=== PATIENT | male | born 1965 | race American Indian/Alaskan Native ===

== ENCOUNTER 2017-07-13 22:11 | Emergency (ER) | payer BC, OTHER ==
[2017-07-13] MEDS ORDERED: Ketorolac 30 MG/ML SDV IVPUSH ONE (22:23)
[2017-07-13] MEDS ORDERED: Ondansetron 4 MG/2 ML SDV IVPUSH ONE (22:23)
[2017-07-13] MEDS ORDERED: Sodium Chloride 0.9% 1,000 ML IV ONE (22:23)
--- NOTE | 2017-07-13 22:26 | EDM.PDOC ---
ED HPI GENERAL MEDICAL PROBLEM - General Chief Complaint: Abdominal Pain Stated Complaint: ABD PAIN Time Seen by Provider: 07/13/17 22:22 - History of Present Illness INITIAL COMMENTS - FREE TEXT/NARRATIVE: HISTORY AND PHYSICAL: History of present illness: Patient 52-year-old white male presents with a concern of right-sided abdominal/ flank pain that started this afternoon progressively worse he was similar episode in the past with urolithiasis he denies fever chills denies vomiting denies trauma denies urinary symptoms denies chest pain or shortness of breath Review of systems: As per history of present illness and below otherwise all systems reviewed and negative. Past medical history: As per history of present illness and as reviewed below otherwise noncontributory. Surgical history: As per history of present illness and as reviewed below otherwise noncontributory. Social history: No reported history of drug or alcohol abuse. Family history: As per history of present illness and as reviewed below otherwise noncontributory. Physical exam: HEENT: Atraumatic, normocephalic, pupils reactive, negative for conjunctival pallor or scleral icterus, mucous membranes moist, throat clear, neck supple, nontender, trachea midline. Lungs: Clear to auscultation, breath sounds equal bilaterally, chest nontender. Heart: S1S2, regular, negative for clicks, rubs, or JVD. Abdomen: Soft, nondistended, nontender. Negative for masses or hepatosplenomegaly. Right-sided costovertebral tenderness. Pelvis: Stable nontender. Genitourinary: Deferred. Rectal: Deferred. Extremities: Atraumatic, negative for cords or calf pain. Neurovascular unremarkable. Neuro: Awake, alert, oriented. Cranial nerves II through XII unremarkable. Cerebellum unremarkable. Motor and sensory unremarkable throughout. Exam nonfocal. Diagnostics: CBC CMP lipase UA CT abdomen and pelvis chest x-ray Therapeutics: Saline 1 L bolus and Toradol 30 mg IV Impression: #1 acute right flank/abdominal pain Definitive disposition and diagnosis as appropriate pending reevaluation and review of above. Right Abdominal Pain Score (Numeric/FACES): 8 - Related Data Allergies Allergy/AdvReac Type Severity Reaction Status Date / Time almond Allergy Hives Verified 07/13/17 22:22 Home Meds: Home Meds Telmisartan [Micardis] 0 mg PO DAILY 07/13/17 [History] ED ROS GENERAL - Review of Systems Review Of Systems: ROS reveals no pertinent complaints other than HPI. ED EXAM, GENERAL - Physical Exam Exam: See Below (See dictation) Course - Vital Signs Last Recorded V/S: Last Vital Signs Temp 36.3 C 07/13/17 22:16 Pulse 91 07/13/17 22:16 Resp 20 07/13/17 22:16 BP 121/90 07/13/17 22:34 Pulse Ox 96 07/13/17 22:16 - Orders/Labs/Meds Orders: Active Orders 24 hr Category Date Time Status Abdomen Pelvis wo Cont [CT] Stat Exams 07/13/17 22:22 Taken Chest 2V [CR] Stat Exams 07/13/17 22:22 Taken Tamsulosin [Flomax] Med 07/14/17 00:14 Once 0.4 mg PO ONETIME ONE cefTRIAXone [Rocephin] Med 07/14/17 00:15 Active 1,000 mg IVPUSH Q24H Medication Orders Ceftriaxone Sodium (Rocephin) 1,000 mg IVPUSH Q24H MAX Labs: Laboratory Tests 07/13/17 07/13/17 07/13/17 Range/Units 22:33 22:33 23:03 WBC 18.78 H (4.0-11.0) K/uL RBC 5.15 (4.50-5.90) M/uL Hgb 17.3 H (13.0-17.0) g/dL Hct 48.9 (38.0-50.0) % MCV 95.0 (80.0-98.0) fL MCH 33.6 H (27.0-32.0) pg MCHC 35.4 (31.0-37.0) g/dL RDW Std Deviation 49.1 (28.0-62.0) fl RDW Coeff of Koffi 14 (11.0-15.0) % Plt Count 287 (150-400) K/uL MPV 10.20 (7.40-12.00) fL Neut % (Auto) 81.8 H (48.0-80.0) % Lymph % (Auto) 10.6 L (16.0-40.0) % Mccreary % (Auto) 7.1 (0.0-15.0) % Eos % (Auto) 0.3 (0.0-7.0) % Baso % (Auto) 0.2 (0.0-1.5) % Neut # (Auto) 15.4 H (1.4-5.7) K/uL Lymph # (Auto) 2.0 (0.6-2.4) K/uL Mccreary # (Auto) 1.3 H (0.0-0.8) K/uL Eos # (Auto) 0.1 (0.0-0.7) K/uL Baso # (Auto) 0.0 (0.0-0.1) K/uL Nucleated RBC % 0.0 /100WBC Nucleated RBCs # 0 K/uL Sodium 136 (136-146) mmol/L Potassium 3.7 (3.5-5.1) mmol/L Chloride 103 (98-110) mmol/L Carbon Dioxide 22 (21-31) mmol/L BUN 14 (6.0-23.0) mg/dL Creatinine 1.3 (0.6-1.5) mg/dL Est Cr Clr Drug Dosing 62.85 mL/min Estimated GFR (MDRD) 57.5 ml/min Glucose 109 (60-110) mg/dL Calcium 9.5 (8.8-10.8) mg/dL Total Bilirubin 1.2 (0.1-1.5) mg/dL AST 24 (5-40) IU/L ALT 39 (8-54) IU/L Alkaline Phosphatase 62 (40-150) Total Protein 7.6 (6.0-8.0) g/dL Albumin 4.2 (3.5-5.0) g/dL Globulin 3.4 (2.0-3.5) g/dL Albumin/Globulin Ratio 1.2 L (1.3-2.8) Lipase 11 (7-80) U/L Urine Color YELLOW Urine Appearance HAZY Urine pH 6.0 (5.0-8.0) Ur Specific [place] 1.010 (1.001-1.035) Urine Protein NEGATIVE (NEGATIVE) mg/dL Urine Glucose (UA) NEGATIVE (NEGATIVE) mg/dL Urine Ketones NEGATIVE (NEGATIVE) mg/dL Urine Occult Blood LARGE H (NEGATIVE) Urine Nitrite NEGATIVE (NEGATIVE) Urine Bilirubin NEGATIVE (NEGATIVE) Urine Urobilinogen 0.2 (<2.0) EU/dL Ur Leukocyte Esterase NEGATIVE (NEGATIVE) Urine RBC 25-30 (0-2/HPF) Urine WBC 0-1 (0-5/HPF) Ur Epithelial Cells RARE (NONE-FEW) Urine Bacteria FEW (NEGATIVE) Meds: Medications Generic Name Dose Route Start Last Admin Trade Name Odilon PRN Reason Stop Dose Admin Ceftriaxone Sodium 1,000 mg 07/14/17 00:15 Rocephin IVPUSH Q24H MAX Discontinued Medications Generic Name Dose Route Start Last Admin Trade Name Odilon PRN Reason Stop Dose Admin Sodium Chloride 1,000 mls @ 999 mls/hr 07/13/17 22:23 07/13/17 22:36 Normal Saline IV 07/13/17 23:23 999 mls/hr STAT ONE Administration Ceftriaxone Sodium 1,000 mg/ 50 mls @ 200 mls/hr 07/14/17 00:10 Sodium Chloride IV 07/14/17 00:24 ONETIME ONE Ketorolac Tromethamine 30 mg 07/13/17 22:23 07/13/17 22:37 Toradol IVPUSH 07/13/17 22:24 30 mg ONETIME ONE Administration Ondansetron HCl 4 mg 07/13/17 22:23 07/13/17 22:37 Zofran IVPUSH 07/13/17 22:24 4 mg ONETIME ONE Administration Departure - Departure Time of Disposition: 00:15 Disposition: DC/Tfer to Acute Hospital 02 Condition: Good Clinical Impression: Obstructive uropathy, Leukocytosis, Abdominal pain - Discharge Information Referrals: PCP,None [Primary Care Provider] - Forms: ED Department Discharge - My Orders Last 24 Hours: My Active Orders 07/13/17 22:22 Abdomen Pelvis wo Cont [CT] Stat Chest 2V [CR] Stat 07/14/17 00:14 Tamsulosin [Flomax] 0.4 mg PO ONETIME ONE 07/14/17 00:15 cefTRIAXone [Rocephin] 1,000 mg IVPUSH Q24H - Assessment/Plan Last 24 Hours: My Active Orders 07/13/17 22:22 Abdomen Pelvis wo Cont [CT] Stat Chest 2V [CR] Stat 07/14/17 00:14 Tamsulosin [Flomax] 0.4 mg PO ONETIME ONE 07/14/17 00:15 cefTRIAXone [Rocephin] 1,000 mg IVPUSH Q24H
[2017-07-14] MEDS ORDERED: Tamsulosin 0.4 MG Cap.ER PO ONE (00:14)
[2017-07-14] MEDS ORDERED: cefTRIAXone 1,000 MG VIAL IVPUSH SCH (00:15)
[2017-07-14] MEDS: cefTRIAXone 1,000 MG in Sodium Chloride 0.9% 50 ML IV ONE ×2 (00:23→00:30)
[2017-07-14] MEDS ORDERED: Nicotine 14 MG/24 Hr Patch TRDERM ONE (00:31)
[2017-07-14] MEDS ORDERED: Sodium Chloride 0.9% 1,000 ML IV ONE (00:32)
[2017-07-14] MEDS ORDERED: Nicotine 21 MG/24 Hr Patch ONE (00:33)
[2017-07-14] MEDS ORDERED: Nicotine 21 MG/24 Hr Patch TRDERM ONE (00:34)
--- NOTE | 2017-07-14 15:21 | CT ---
EXAM DATE: 07/13/17 PATIENT'S AGE: 52 Patient: CHARANJIT HOLLIDAY Facility: [place], [place] Site . Site : 1965 Study: CT Abdomen/Pelvis [id number]/8/2017 11:00:37 PM Ordering Physician: Noah Kowalski Final Report: INDICATION: Flank pain TECHNIQUE: CT abdomen and pelvis without contrast. COMPARISON: 11/28/2009 FINDINGS: Lower chest: Unremarkable. Liver: Unremarkable. Spleen: Unremarkable. Pancreas: Unremarkable. Gallbladder and bile ducts: Unremarkable. Kidneys: 6 millimeter obstructing calculus right UVJ with severe right hydronephrosis. Bilateral punctate nonobstructing renal calculi. Adrenal glands: Unremarkable. GI tract: Unremarkable. Appendix is normal. Vascular structures: Unremarkable. Lymph nodes: Unremarkable. Miscellaneous: Fat containing umbilical hernia. No free air or significant free fluid. Pelvic Organs: Unremarkable. Bones: Unremarkable for age. IMPRESSION: 6 millimeter obstructing calculus right UVJ was severe right hydronephrosis. Bilateral punctate nonobstructing renal calculi. Dictated by Zane Baker MD @ 07/13/2017 11:24:25 PM Dictated by: Zane Baker MD @ 07/13/2017 23:24:32 (Electronic Signature) Report Signed by Proxy. [facility]
--- NOTE | 2017-07-14 15:22 | CR ---
EXAM DATE: 07/13/17 PATIENT'S AGE: 52 Patient: CHARANJIT HOLLIDAY Facility: [place], [place] Site . Site : 1965 Study: XRay Chest [id number]/8/2017 11:03:25 PM Ordering Physician: Noah Kowalski Final Report: INDICATION: abdominal pain TECHNIQUE: Chest radiograph 2 views COMPARISON: 12/09/09 FINDINGS: Cardiovascular and mediastinum: The cardiac silhouette is normal in appearance and size. Mediastinum is within normal limits. Lungs and pleural spaces: Both lungs are unremarkable in appearance. No sign of pleural effusion. No pneumothorax is seen. Bones and soft tissues: No significant findings. IMPRESSION: 1. No acute cardiopulmonary disease seen. Dictated by: Bairon Ramsay MD @ 07/13/2017 23:18:17 (Electronic Signature) Report Signed by Proxy. [facility]
== END 2017-07-14 00:56 ==
LOC: MW.ED 22:11
DX: N13.9 Obstructive and reflux uropathy, unspecified (principal); D72.829 Elevated white blood cell count, unspecified; Z79.899 Other long term (current) drug therapy; Z91.018 Allergy to other foods
CPT/HCPCS: 36415; 71020; 74176; 80053; 81001; 83690; 85025; 96361; 96365; 96375; 99285; A9270; J0696; J1885; J2405; J7040; J7050; 99284